=== PATIENT | female | born 1930 | race Caucasian/White ===

== ENCOUNTER 2016-08-03 08:22 | Emergency (ER) | payer MEDICARE, OTHER | END 2016-08-03 09:51 | disposition other institution (70) | LOC: ER 08:22 | DX: J44.0 Chronic obstructive pulmonary disease with (acute) lower respiratory infection (principal); J18.9 Pneumonia, unspecified organism; R51 Headache; E87.1 Hypo-osmolality and hyponatremia; E66.01 Morbid (severe) obesity due to excess calories; R11.10 Vomiting, unspecified; R53.1 Weakness; I48.91 Unspecified atrial fibrillation; I10 Essential (primary) hypertension; G62.9 Polyneuropathy, unspecified; I25.10 Atherosclerotic heart disease of native coronary artery without angina pectoris; Z95.0 Presence of cardiac pacemaker; Z86.73 Personal history of transient ischemic attack (TIA), and cerebral infarction without residual deficits; E11.9 Type 2 diabetes mellitus without complications; K21.9 Gastro-esophageal reflux disease without esophagitis; Z79.899 Other long term (current) drug therapy; Z79.01 Long term (current) use of anticoagulants | CPT/HCPCS: 99284; 99284-25 ==

== ENCOUNTER 2016-08-03 08:22 | Inpatient (IN) | payer MEDICARE, OTHER ==
[~2016-08-03] VITALS: Ht 170.2 cm; Wt 91.0 kg
[2016-08-03 09:06] LABS: BASO % 0.2 % (0.1-1.2); EOS % 0.2 % (0.7-5.8); GRAN # 8.9 10_X3_uL (1.6-6.1); GRAN % 74.4 % (34.0-71.1); HEMATOCRIT 31.9 % (34-45); HEMOGLOBIN 10.9 g/dL (11.2-15.7); LYMPH # 1.4 10_X3_uL (1.2-3.7); MEAN CORPUSCULAR HEMOGLOBIN 29.9 pg (27.0-33.0); MEAN CORPUSCULAR HGB CONC 34.2 g/dL (32.0-36.0); MEAN CORPUSCULAR VOLUME 87.6 fL (79-95); MEAN PLATELET VOLUME 9.1 fl (7.5-11.5); MONO # 1.6 10_X3_uL (0.2-0.9); MONO % 13.2 % (4.7-12.5); PLATELET COUNT 251 x10_3/uL (182-369); RED BLOOD COUNT 3.64 x10_6/uL (3.9-5.2); RED CELL DISTRIBUTION WIDTH 14.9 % (11.7-14.4); WHITE BLOOD COUNT 11.9 x10_3/uL (4.0-10.0)
[2016-08-03 09:15] LABS: ARTERIAL BLD GAS O2 SATURATION 96.5 % (94-98); ARTERIAL BLOOD GAS BASE EXCESS 4.5 mmol/L (-2.0-3.0); ARTERIAL BLOOD GAS HCO3 28.4 mmol/L (22-26); ARTERIAL BLOOD GAS PCO2 41.1 mmHg (32-45); ARTERIAL BLOOD GAS pH 7.45 (7.35-7.45)
[2016-08-03 09:22] LABS: ALBUMIN 3.7 gm/dL (3.4-5.0); ALKALINE PHOSPHATASE 46 U/L (50-136); ALT/SGPT 11 U/L (3.5-33.9); AST/SGOT 25 U/L (7.04-26.96); BILIRUBIN,TOTAL 0.72 mg/dL (0.0-1.0); BLOOD UREA NITROGEN 8 mg/dL (7-18); CALCIUM 8.4 mg/dL (8.7-10.7); CARBON DIOXIDE 26 mmol/L (21-32); CREATINE KINASE 174 U/L (21-215); CREATININE 0.7 mg/dL (0.6-1.3); GLUCOSE,RANDOM 131 mg/dL (70-99); SODIUM 126 mmol/L (136-145)
[2016-08-03 12:24] LABS: INR 2.4 (0.9-1.1); PROTHROMBIN TIME (PATIENT) 24.5 SECONDS (9.9-11.1)
[2016-08-03 20:34] LABS: CKMB 4.4 ng/ml (0.0-5.0)
[2016-08-03 20:35] LABS: TROP-I < 0.30 NG/ML (0.00-0.30)
[2016-08-04 02:13] LABS: CKMB 5.3 ng/ml (0.0-5.0); TROP-I < 0.30 NG/ML (0.00-0.30)
[2016-08-04 07:30] LABS: HEMATOCRIT 28.4 % (34-45); HEMOGLOBIN 9.9 g/dL (11.2-15.7); MEAN CORPUSCULAR HEMOGLOBIN 30.3 pg (27.0-33.0); MEAN CORPUSCULAR HGB CONC 34.9 g/dL (32.0-36.0); MEAN CORPUSCULAR VOLUME 86.9 fL (79-95); MEAN PLATELET VOLUME 9.1 fl (7.5-11.5); RED BLOOD COUNT 3.27 x10_6/uL (3.9-5.2); RED CELL DISTRIBUTION WIDTH 14.4 % (11.7-14.4); WHITE BLOOD COUNT 12.8 x10_3/uL (4.0-10.0)
[2016-08-04 07:56] LABS: INR 3.9 (0.9-1.1)
[2016-08-04 08:06] LABS: CKMB 5.2 ng/ml (0.0-5.0); TROP-I < 0.30 NG/ML (0.00-0.30)
[2016-08-04 08:29] LABS: BLOOD UREA NITROGEN 17 mg/dL (7-18); CALCIUM 8.4 mg/dL (8.7-10.7); CARBON DIOXIDE 24 mmol/L (21-32); CREATININE 0.8 mg/dL (0.6-1.3); GLUCOSE,RANDOM 181 mg/dL (70-99); POTASSIUM 3.4 mmol/L (3.5-5.1); SODIUM 128 mmol/L (136-145)
[2016-08-05 06:33] LABS: HEMATOCRIT 27.6 % (34-45); HEMOGLOBIN 9.6 g/dL (11.2-15.7); MEAN CORPUSCULAR HEMOGLOBIN 30.3 pg (27.0-33.0); MEAN CORPUSCULAR HGB CONC 34.8 g/dL (32.0-36.0); MEAN CORPUSCULAR VOLUME 87.1 fL (79-95); MEAN PLATELET VOLUME 9.2 fl (7.5-11.5); RED BLOOD COUNT 3.17 x10_6/uL (3.9-5.2); RED CELL DISTRIBUTION WIDTH 14.9 % (11.7-14.4); WHITE BLOOD COUNT 17.2 x10_3/uL (4.0-10.0)
[2016-08-05 06:50] LABS: BLOOD UREA NITROGEN 21 mg/dL (7-18); CALCIUM 8.5 mg/dL (8.7-10.7); CARBON DIOXIDE 28 mmol/L (21-32); CREATININE 0.8 mg/dL (0.6-1.3); GLUCOSE,RANDOM 165 mg/dL (70-99); POTASSIUM 4.1 mmol/L (3.5-5.1); SODIUM 132 mmol/L (136-145)
[2016-08-05 07:04] LABS: INR 4.6 (0.9-1.1)
[2016-08-06 02:08] LABS: CKMB 3.4 ng/ml (0.0-5.0)
[2016-08-06 02:10] LABS: TROP-I < 0.30 NG/ML (0.00-0.30)
[2016-08-06 07:30] LABS: HEMATOCRIT 29.4 % (34-45); HEMOGLOBIN 9.9 g/dL (11.2-15.7); MEAN CORPUSCULAR HEMOGLOBIN 29.9 pg (27.0-33.0); MEAN CORPUSCULAR HGB CONC 33.7 g/dL (32.0-36.0); MEAN CORPUSCULAR VOLUME 88.8 fL (79-95); MEAN PLATELET VOLUME 9.2 fl (7.5-11.5); RED BLOOD COUNT 3.31 x10_6/uL (3.9-5.2); RED CELL DISTRIBUTION WIDTH 15.6 % (11.7-14.4); WHITE BLOOD COUNT 17.1 x10_3/uL (4.0-10.0)
[2016-08-06 07:36] LABS: INR 3.6 (0.9-1.1); PROTHROMBIN TIME (PATIENT) 36.4 SECONDS (9.9-11.1)
[2016-08-06 07:47] LABS: BLOOD UREA NITROGEN 19 mg/dL (7-18); CALCIUM 8.7 mg/dL (8.7-10.7); CARBON DIOXIDE 30 mmol/L (21-32); CREATININE 0.8 mg/dL (0.6-1.3); GLUCOSE,RANDOM 97 mg/dL (70-99); POTASSIUM 3.8 mmol/L (3.5-5.1); SODIUM 136 mmol/L (136-145)
[2016-08-07 07:12] LABS: ARTERIAL BLD GAS O2 SATURATION 87.9 % (94-98); ARTERIAL BLOOD GAS BASE EXCESS 8.2 mmol/L (-2.0-3.0); ARTERIAL BLOOD GAS HCO3 32.7 mmol/L (22-26); ARTERIAL BLOOD GAS PCO2 45.7 mmHg (32-45); ARTERIAL BLOOD GAS pH 7.47 (7.35-7.45)
[2016-08-07 07:20] LABS: HEMOGLOBIN 10.3 g/dL (11.2-15.7); MEAN CORPUSCULAR HEMOGLOBIN 29.6 pg (27.0-33.0); MEAN CORPUSCULAR HGB CONC 33.2 g/dL (32.0-36.0); MEAN CORPUSCULAR VOLUME 89.1 fL (79-95); MEAN PLATELET VOLUME 9.1 fl (7.5-11.5); RED BLOOD COUNT 3.48 x10_6/uL (3.9-5.2); WHITE BLOOD COUNT 15.8 x10_3/uL (4.0-10.0)
[2016-08-07 07:29] LABS: INR 2.4 (0.9-1.1)
[2016-08-07 07:34] LABS: BLOOD UREA NITROGEN 18 mg/dL (7-18); CARBON DIOXIDE 32 mmol/L (21-32); CREATININE 0.8 mg/dL (0.6-1.3); GLUCOSE,RANDOM 97 mg/dL (70-99); POTASSIUM 3.8 mmol/L (3.5-5.1); SODIUM 136 mmol/L (136-145)
[2016-08-08 07:14] LABS: ARTERIAL BLD GAS O2 SATURATION 93.8 % (94-98); ARTERIAL BLOOD GAS BASE EXCESS 5.1 mmol/L (-2.0-3.0); ARTERIAL BLOOD GAS HCO3 30.5 mmol/L (22-26); ARTERIAL BLOOD GAS PCO2 47.3 mmHg (32-45); ARTERIAL BLOOD GAS pH 7.43 (7.35-7.45)
[2016-08-08 07:31] LABS: HEMATOCRIT 31.3 % (34-45); HEMOGLOBIN 10.4 g/dL (11.2-15.7); MEAN CORPUSCULAR HEMOGLOBIN 29.5 pg (27.0-33.0); MEAN CORPUSCULAR HGB CONC 33.2 g/dL (32.0-36.0); MEAN CORPUSCULAR VOLUME 88.9 fL (79-95); MEAN PLATELET VOLUME 9.1 fl (7.5-11.5); RED BLOOD COUNT 3.52 x10_6/uL (3.9-5.2); WHITE BLOOD COUNT 16.7 x10_3/uL (4.0-10.0)
[2016-08-08 07:32] LABS: BLOOD UREA NITROGEN 16 mg/dL (7-18); CARBON DIOXIDE 28 mmol/L (21-32); CREATININE 0.9 mg/dL (0.6-1.3); GLUCOSE,RANDOM 95 mg/dL (70-99); SODIUM 137 mmol/L (136-145)
[2016-08-08 07:46] LABS: INR 1.7 (0.9-1.1); PROTHROMBIN TIME (PATIENT) 18.1 SECONDS (9.9-11.1)
[2016-08-09 07:38] LABS: HEMATOCRIT 32.4 % (34-45); HEMOGLOBIN 10.5 g/dL (11.2-15.7); MEAN CORPUSCULAR HEMOGLOBIN 29.2 pg (27.0-33.0); MEAN CORPUSCULAR HGB CONC 32.4 g/dL (32.0-36.0); MEAN CORPUSCULAR VOLUME 90.3 fL (79-95); MEAN PLATELET VOLUME 8.5 fl (7.5-11.5); RED BLOOD COUNT 3.59 x10_6/uL (3.9-5.2); RED CELL DISTRIBUTION WIDTH 16.1 % (11.7-14.4); WHITE BLOOD COUNT 12.4 x10_3/uL (4.0-10.0)
[2016-08-09 07:44] LABS: INR 1.5 (0.9-1.1)
[2016-08-09 07:50] LABS: BLOOD UREA NITROGEN 18 mg/dL (7-18); CALCIUM 8.9 mg/dL (8.7-10.7); CARBON DIOXIDE 32 mmol/L (21-32); CREATININE 0.9 mg/dL (0.6-1.3); GLUCOSE,RANDOM 92 mg/dL (70-99); POTASSIUM 3.8 mmol/L (3.5-5.1); SODIUM 139 mmol/L (136-145)
[2016-08-10 07:38] LABS: HEMATOCRIT 32.7 % (34-45); HEMOGLOBIN 10.8 g/dL (11.2-15.7); MEAN CORPUSCULAR HEMOGLOBIN 29.8 pg (27.0-33.0); MEAN CORPUSCULAR VOLUME 90.1 fL (79-95); MEAN PLATELET VOLUME 8.8 fl (7.5-11.5); RED BLOOD COUNT 3.63 x10_6/uL (3.9-5.2); RED CELL DISTRIBUTION WIDTH 16.2 % (11.7-14.4); WHITE BLOOD COUNT 12.5 x10_3/uL (4.0-10.0)
[2016-08-10 07:41] LABS: INR 1.6 (0.9-1.1); PROTHROMBIN TIME (PATIENT) 16.2 SECONDS (9.9-11.1)
== END 2016-08-10 11:25 | disposition swing bed (61) | DRG 190 ==
LOC: ER 08:22 → MS 09:51 → UNDODEPER 08-06 13:59 → MS 08-10 11:25
PROVIDERS: Family Medicine; General Practice; ADMIT Family Medicine
PROC: 3E0234Z Introduction of Serum, Toxoid and Vaccine into Muscle, Percutaneous Approach (ICD-10-PCS; principal; 2016-08-04)
DX: J44.0 Chronic obstructive pulmonary disease with (acute) lower respiratory infection (principal); J18.0 Bronchopneumonia, unspecified organism; K62.5 Hemorrhage of anus and rectum; J44.1 Chronic obstructive pulmonary disease with (acute) exacerbation; I11.0 Hypertensive heart disease with heart failure; I50.9 Heart failure, unspecified; I48.91 Unspecified atrial fibrillation; E87.6 Hypokalemia; E86.1 Hypovolemia; D64.9 Anemia, unspecified; R91.1 Solitary pulmonary nodule; D73.4 Cyst of spleen; K76.89 Other specified diseases of liver; K64.9 Unspecified hemorrhoids; E11.9 Type 2 diabetes mellitus without complications; R10.816 Epigastric abdominal tenderness; R42 Dizziness and giddiness; F41.9 Anxiety disorder, unspecified; I25.10 Atherosclerotic heart disease of native coronary artery without angina pectoris; K21.9 Gastro-esophageal reflux disease without esophagitis; G62.9 Polyneuropathy, unspecified; R79.1 Abnormal coagulation profile; Z86.73 Personal history of transient ischemic attack (TIA), and cerebral infarction without residual deficits; Z90.710 Acquired absence of both cervix and uterus; Z95.0 Presence of cardiac pacemaker; Z79.01 Long term (current) use of anticoagulants; Z79.899 Other long term (current) drug therapy; Z87.891 Personal history of nicotine dependence; Z23 Encounter for immunization
CPT/HCPCS: 36415; 36600; 71010; 71020; 71250; 80048; 80053; 82550; 82553; 82803; 83605; 83880; 85025; 85610; 86738; 87040; 87070; 87205; 87400; 87449; 87880; 93005; 93041; 93306; 94640; 94664; 96365; 96375; 99070; 99284; 99284-25; J2920; J2930; J7040

== ENCOUNTER 2016-08-10 11:25 | Inpatient (IN) | payer MEDICARE, OTHER ==
[~2016-08-10] VITALS: Ht 170.2 cm; Wt 85.0 kg
[2016-08-11 15:13] LABS: INR 1.7 (0.9-1.1); PROTHROMBIN TIME (PATIENT) 17.3 SECONDS (9.9-11.1)
[2016-08-12 07:01] LABS: INR 1.7 (0.9-1.1); PROTHROMBIN TIME (PATIENT) 17.6 SECONDS (9.9-11.1)
[2016-08-12 15:21] LABS: INR 1.7 (0.9-1.1); PROTHROMBIN TIME (PATIENT) 17.7 SECONDS (9.9-11.1)
[2016-08-13 04:58] LABS: HEMATOCRIT 33.7 % (34-45); HEMOGLOBIN 11.2 g/dL (11.2-15.7); MEAN CORPUSCULAR HEMOGLOBIN 29.8 pg (27.0-33.0); MEAN CORPUSCULAR HGB CONC 33.2 g/dL (32.0-36.0); MEAN CORPUSCULAR VOLUME 89.6 fL (79-95); MEAN PLATELET VOLUME 9.2 fl (7.5-11.5); RED BLOOD COUNT 3.76 x10_6/uL (3.9-5.2); RED CELL DISTRIBUTION WIDTH 16.2 % (11.7-14.4)
[2016-08-13 05:07] LABS: BLOOD UREA NITROGEN 21 mg/dL (7-18); CALCIUM 9.2 mg/dL (8.7-10.7); CARBON DIOXIDE 27 mmol/L (21-32); CREATININE 0.8 mg/dL (0.6-1.3); GLUCOSE,RANDOM 104 mg/dL (70-99); POTASSIUM 4.2 mmol/L (3.5-5.1); SODIUM 138 mmol/L (136-145)
[2016-08-13 05:11] LABS: CKMB 1.2 ng/ml (0.0-5.0)
[2016-08-13 05:13] LABS: TROP-I < 0.30 NG/ML (0.00-0.30)
[2016-08-13 17:36] LABS: INR 2.1 (0.9-1.1); PROTHROMBIN TIME (PATIENT) 22.1 SECONDS (9.9-11.1)
[2016-08-14 06:40] LABS: INR 2.5 (0.9-1.1); PROTHROMBIN TIME (PATIENT) 25.7 SECONDS (9.9-11.1)
[2016-08-15 06:44] LABS: INR 2.7 (0.9-1.1); PROTHROMBIN TIME (PATIENT) 27.6 SECONDS (9.9-11.1)
[2016-08-16 06:41] LABS: INR 2.8 (0.9-1.1); PROTHROMBIN TIME (PATIENT) 28.4 SECONDS (9.9-11.1)
[2016-08-17 06:43] LABS: INR 2.9 (0.9-1.1); PROTHROMBIN TIME (PATIENT) 29.3 SECONDS (9.9-11.1)
[2016-08-17 06:47] LABS: HEMATOCRIT 31.8 % (34-45); HEMOGLOBIN 10.2 g/dL (11.2-15.7); MEAN CORPUSCULAR HEMOGLOBIN 28.4 pg (27.0-33.0); MEAN CORPUSCULAR HGB CONC 32.1 g/dL (32.0-36.0); MEAN CORPUSCULAR VOLUME 88.6 fL (79-95); MEAN PLATELET VOLUME 9.9 fl (7.5-11.5); RED BLOOD COUNT 3.59 x10_6/uL (3.9-5.2); RED CELL DISTRIBUTION WIDTH 16.1 % (11.7-14.4); WHITE BLOOD COUNT 10.9 x10_3/uL (4.0-10.0)
[2016-08-17 06:54] LABS: BLOOD UREA NITROGEN 23 mg/dL (7-18); CALCIUM 9.1 mg/dL (8.7-10.7); CARBON DIOXIDE 25 mmol/L (21-32); CREATININE 0.7 mg/dL (0.6-1.3); GLUCOSE,RANDOM 99 mg/dL (70-99); POTASSIUM 3.8 mmol/L (3.5-5.1); SODIUM 140 mmol/L (136-145)
== END 2016-08-17 11:35 | disposition home or self-care (01) | DRG 557 ==
LOC: SWING 11:25 → MS 08-12 18:55 → SWING 08-12 18:55
PROVIDERS: Family Medicine; ADMIT Family Medicine
PROC: 3E0234Z Introduction of Serum, Toxoid and Vaccine into Muscle, Percutaneous Approach (ICD-10-PCS; principal; 2016-08-11)
DX: M62.50 Muscle wasting and atrophy, not elsewhere classified, unspecified site (principal); J18.9 Pneumonia, unspecified organism; J44.0 Chronic obstructive pulmonary disease with (acute) lower respiratory infection; J44.1 Chronic obstructive pulmonary disease with (acute) exacerbation; I11.0 Hypertensive heart disease with heart failure; I50.9 Heart failure, unspecified; R06.02 Shortness of breath; Z86.73 Personal history of transient ischemic attack (TIA), and cerebral infarction without residual deficits; I48.91 Unspecified atrial fibrillation; Z90.710 Acquired absence of both cervix and uterus; Z79.01 Long term (current) use of anticoagulants; Z79.899 Other long term (current) drug therapy; Z23 Encounter for immunization
CPT/HCPCS: 36415; 80048; 82550; 82553; 83880; 85610; 90732; 93005; 94640; 94664; 97110; 97116; 99070; G0009; J2930